=== PATIENT | female | born 1970 ===

== ENCOUNTER 2024-11-23 09:49 | Outpatient (AMB) | payer OTHER, SELFPAY ==
--- NOTE | 2024-11-23 09:57 | A.OFFVIS_ITS ---
Vital Signs 11/23/24 10:00 Height 5 ft 2.6 in Weight 153 lb BMI 27.4 BP 131/70 Blood Pressure Location Rt brachial Position Sitting Respiration 16 Pulse 75 Pulse Source Pulse Oximeter Pulse Oximetry (%) 99 Oxygen Delivery Method Room Air Intake Visit Reasons: LEFT LUMBAR RADICULOPATHY Leak Detection Engineer Required: Yes Leak Detection Engineer Language: [place] Leak Detection Engineer Services: Leak Detection Engineer Offered & Declined Leak Detection Engineer Name: Provider is fluent in [place] Information Interpreted: non-clinical & clinical Allergies No Known Allergies Allergy (Verified 11/23/24 11:03) HPI Comments Details: The patient is a 54-year-old female presenting with left-sided radiculopathy and left hip pain. The pain has been present for approximately two years and is described as a pulling and burning sensation that affects the left buttock and sometimes the mid abdomen and left flank. The pain is exacerbated by tight clothing and seat belts, and she has tried chiropractic and massage therapy without relief. The patient reports that the pain does not worsen with bending or lifting, and she denies any urinary or bowel symptoms. She has a history of thoracolumbar scoliosis, which was identified in imaging studies conducted in October 2022. Updated imaging reports for lumbar spine and left hip are not available for review today. The patient has not undergone any surgeries or procedures related to her current condition. She has been using ibuprofen for pain management, which provides some relief. - Onset: Approximately two years ago - Quality: Pulling sensation left sided low back wrapping around left buttock and left lateral hip, aching, burning, cramping, tight - Location: Left low back, left buttock, left lateral hip, sometimes radiating to the mid upper abdomen - Exacerbating factors: Tight clothing, seatbelts, pulling, prolonged driving or sitting, changing positions, sleeping on left side - Relieving factors: Ibuprofen provides some relief - Interference: Does not worsen with bending or lifting - Affect: Pain impacts daily activities, work, functioning - Analgesia: Currently using ibuprofen, pain level can reach up to 8/10 - Adverse Effects: None reported - Activities of Daily Living: Pain does not interfere with bending or lifting, but tight clothing and seatbelts exacerbate pain - Aberrant Drug Related Behaviors: None reported [facility] Medical History (Updated 11/23/24 @ 12:10 by ÁNGEL Maher) Pyelonephritis of left kidney Vitamin D deficiency Left flank pain Left hip pain Left lumbar radiculopathy Review of Systems Const Details: - Musculoskeletal: Reports left-sided radiculopathy and left hip and buttock teresa n, denies worsening with bending or lifting - Neurological: Denies sensory or motor deficits - Genitourinary: Denies urinary or bowel symptoms - GI: Reports back pain with 6-8/10 will radiate to mid epigastric region, left flank and cause nausea All systems reviewed & are unremarkable except as noted in HPI and below Physical Exam Vital Signs: Last Vital Signs Pulse 75 11/23/24 10:00 Resp 16 11/23/24 10:00 BP 131/70 11/23/24 10:00 Pulse Ox 99 11/23/24 10:00 Oxygen Delivery Method Room Air 11/23/24 10:00 BMI result Body Mass Index 27.4 General: Appears afebrile. Alert and oriented. Mood and affect appropriate. Follows and participates in conversation appropriately. Respiratory effort is unlabored. No cough. Able to transition from sit to stand unassisted. Ambulates with bilaterally normal heel strike and toe off. General: Yes no CVA tenderness Back/Spine/Pelvis Other: Patient is able to walk and stand on heels and tip toes with no difficulties demonstrating good motor tone. Normal gait, no limping. Can flex forward to 70- 75 degrees and extend to 10-15 degrees before experiencing lumbar pain. Demonstrates 5/5 strength of quadriceps bilaterally as well as flexion/dorsiflexion of bilateral feet against resistance. 2+ pedal pulses bilaterally. Seated and supine straight leg rise with dorsiflexion negative bilaterally, mild difficulty noted with right SLR supine but no pain. +2 simpson lar and achilles reflexes bilaterally. Facet loading test positive bilaterally, mild symptoms. Ab sign positive bilaterally, Derrell?s reproduces mild left lateral hip and buttock pain but not back pain, Pelvic compression and Stinchfield tests are negative. Mild TTP to both GTB. Valsalva maneuver negative. Back: no CVA tenderness Cervical Spine: cervical ROM normal, loss of normal cervical lordosis, No Cervical spine scars present and No Cervical spine tenderness Thoracic/Lumbar Spine: thoracic and lumbar spine normal to inspection, No Thoracic/lumbar spine scar(s), Lasegue's sign negative, straight leg raise negative bilaterally, pain with thoraco-lumbar ROM, paraspinal muscle tenderness on the left in the mid lumbar and in the lower lumbar, Thoracic/lumbar scoliosis, thoraco-lumbar spasm on the left in the lower thoracic, in the upper lumbar and in the mid lumbar, No thoracic spinal tenderness and lumbar spinal tenderness at L4 and at L5 Sacroiliac joints: bilaterally tender to palpation Results Reviewed Results Reviewed: CERVICAL, THORACIC AND LUMBAR SPINE 3 VIEWS 10/12/22 at [facility] FINDINGS: Vertebral body heights are normal. There is a mild cervicothoracic levoscoliosis. There is mild disc space narrowing at C6-C7. The remaining disc spaces are well-maintained. No acute fracture or spondylolisthesis is seen. There is minimal anterior spondylosis at C3-C4, C4-C5 and C6-C7. The posterior elements are intact. There is no prevertebral soft tissue swelling. The dens and C7-T1 interface are normal. IMPRESSION: 1. There is a mild cervicothoracic levoscoliosis. 2. There is mild degenerative disc disease at C6-C7. 3. There is multi-level minimal anterior cervical spondylosis. XR THORACIC SPINE 10/12/22 FINDINGS: There is no fracture or bone destruction seen and the vertebral alignment is normal. There is no disc space narrowing. There is no abnormality of the paraspinal soft tissues. IMPRESSION: Unremarkable examination. XR LUMBOSACRAL SPINE 10/12/22 CLINICAL INFORMATION: Mid back pain. FINDINGS: Vertebral body heights are normal. There is a mild thoracic dextroscoliosis. The thoracic disc spaces are relatively well-maintained. No acute fracture or spondylolisthesis is seen. The posterior elements are intact. The paraspinal soft tissues are normal. IMPRESSION: 1. There is a mild thoracic dextroscoliosis. 2. The thoracic disc spaces are relatively well-maintained. XR LUMBOSACRAL SPINE 10/12/22 CLINICAL INFORMATION: Lower back pain. COMPARISON: None FINDINGS: Vertebral body heights are normal. There is a slight lumbar dextroscoliosis. The lumbar disc spaces are well-maintained. No acute fracture or spondylolisthesis is seen. The posterior elements are intact. The paravertebral soft tissues are unremarkable. IMPRESSION: 1. There is a slight lumbar dextroscoliosis. 2. The lumbar disc spaces are well-maintained. Assessment & Plan Assessment & Plan (1) Left lumbar radiculopathy: Code(s): M54.16 - Radiculopathy, lumbar region Category: Medical (2) Left hip pain: Code(s): M25.552 - Pain in left hip Category: Medical (3) Left flank pain: Code(s): R10.A2 - Flank pain, left side Category: Medical (4) Epigastric pain: Code(s): R10.13 - Epigastric pain Category: Medical (5) Sacroiliitis: Code(s): M46.1 - Sacroiliitis, not elsewhere classified Category: Medical Plan The plan includes obtaining an MRI to further evaluate the cause of the left- sided radiculopathy and Abdominal US to follow up on mid epigastric and left flank pain with associated nausea symtpoms. Discussed interventional treatments for radicular symptoms, including therapeutic epidural steroid injection and diagnostic vs therapeutic SIJ injections. The patient is advised to continue using ibuprofen as needed for pain management, and to avoid tight clothing and seatbelts that exacerbate her symptoms. Patient encouraged to follow up with her PCP regarding ongoing left flank and abdominal pain, with potential referrals to GI and Urology providers. All questions and concerns have been answered and patient agreed with the treatment plan. Follow up for MRI results and sooner as needed. Patient was informed and verbally consented to the use of an ambient scribe for clinic note documentation during this visit. Orders: Orders US abdomen complete Today R10.13 - Epigastric pain, R10.A2 - Flank pain, left side MR lumbar spine wo con Today G89.29 - Other chronic pain, M47.817 - Spondylosis without myelopathy or radiculopathy, lumbosacral region, M54.16 - Radiculopathy, lumbar region, R10.A2 - Flank pain, left side Coding Level of Care Code New Pt Level 4 (63189) Diagnoses Left lumbar radiculopathy M54.16 Left hip pain M25.552 Left flank pain R10.A2 Epigastric pain R10.13 Sacroiliitis M46.1
[2024-11-23 10:00] VITALS: BP 131/70; PULSE 75; RESP 16; O2SAT 99; BMI 27.4
--- OUTSIDE RECORDS SUMMARY | 2024-11-23 11:21 | XMS_ITS | Clinical Summary ---
Author Organization [facility] Address [address] [place] [address] Care Team Providers Care Digital Operations Analyst Name Role Phone Milly Palafox PA-C Primary Care Provider + [phone] Source Comments PLEASE NOTE, if this patient is a minor, it may be UNLAWFUL to discuss sensitive information that is contained in these records (such as FAMILY PLANNING, MENTAL HEALTH or SUBSTANCE ABUSE) with the minor patient's parent or other person without the patient's specific authorization.[facility] Allergies No known active allergies Medications Selenium Sulfide 2.25 % shampooIndication s:Seborrheic dermatitis Apply topically once a week. 180 mL 1 11/25/19 16 Active benzonatate (TESSALON) 100 mg capsuleIndication s:Dry throat,Cough, persistent Take 1 Capsule by mouth 3 (three) times daily as needed for cough 90 Capsule 11/18/19 23 Active fluticasone (FLONASE) 50 mcg/actuation nasal sprayIndications: Post-nasal drip Place 2 Sprays in both nostrils nightly at bedtime 16 g 4 11/27/19 23 Active loratadine (CLARITIN) 10 mg tabletIndications :Dry throat,Cough, persistent TAKE 1 TABLET BY MOUTH ONCE DAILY NEEDED FOR ALLERGIES 90 Tablet 02/16/19 24 Active simethicone (GAS-X ULTRA) 180 mg capsuleIndication s:Abdominal bloating Take 2 Capsules by mouth every 6 (six) hours as needed for flatulence 100 Capsule 1 09/13/19 24 Active levothyroxine 88 mcg tabletIndications :Acquired hypothyroidism TAKE 1 TABLET BY MOUTH EVERY DAY 90 Tablet 1 11/22/19 25 Active levothyroxine 88 mcg tabletIndications :Acquired hypothyroidism TAKE 1 TABLET BY MOUTH EVERY DAY 90 Tablet 2 08/21/19 25 2024 Discontinued Active Problems Problem Noted Date Diagnosed Date 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 Acquired hypothyroidism 11/25/2015 Encounters Date Type Department Care Team Description 10/10/2024 10:20 AM EDT Office Visit [address] [address] Milly Palafox PA-C from Last 3 Months Immunizations Immunization Administration Dates Next Due Td (adult),2 Lf tetanus toxo id (TDVAX), preservative free 08/31/2022 Social History Tobacco Use Types Packs/Day Years Used Date Smoking Tobacco: Never Passive Smoke Exposure: Never Smokeless Tobacco: Never Tobacco Cessation:Counseling Given: Yes Alcohol Use Standard Drinks/Week Comments No 0 (1 standard drink = 0.6 oz pur e alcohol) Social Connections Answer Date Recorded How often do you feel lonely or isolated from th ose around you? 1 09/13/2023 Financial Resource Strain Answer Date R ecorded Hard to pay for: Food 1 09/13/2023 Stress Answer Date Recorded Do you feel these kinds of stress these days? 1 09/13/2023 Physical Activity Answer Date Recorded Physical Activity 0 09/30/2018 Food Insecurity Answer Date Recorded Hard to pay for: Food 1 09/13/2023 Transportation Needs Answer Date Record ed Hard to pay for: Transportation 1 09/13/2023 Housing Stability Answer Date Recorded Hard to pay for: Rent/Mortgage payment 1 09/13/2023 Safety and Environment Answer Date Jr rded Safety 0 09/30/2018 Utilities Answer Date Recorded Hard to pay for: Utilities 1 09/12 Employment Answer Date Recorded Employment 0 09/30/2018 Comments No Sex and Gender Information Value Date Recorded Sex Assigned at Female 10/02/2018 10:59 PM PDT Legal Sex Female 11:36 AM PDT Gender Identity Female 10/02/2018 10:59 PM PDT Sexual Orientation Straight 10/02/2018 10 :59 PM PDT Last Filed Vital Signs Vital Sign Reading Time Taken Comments Blood Pressure 126/80 10/10/2024 10:19 AM EDT Pulse 87 10/10/2024 10:19 AM EDT Temperature 36.9 C (98.5 F) 10/10/2024 10:19 AM EDT Respiratory Rate 16 10/10/2024 10:19 AM EDT Oxygen Saturation 99% 10/10/2024 10:19 AM EDT Inhaled Oxygen Concentration - - Weight 68.5 kg (151 lb) 10/10/2024 10:19 AM EDT Height 159 cm (5' 2.6 ) 10/10/2024 10:19 AM EDT Body Mass Index 27.09 10/10/2024 10:19 AM EDT Plan of Treatment Upcoming Encounters Date Type Department Care Team (Late st Contact Info) Description 12/03/2024 9:40 AM EDT Telemedicine Visit [facility] [address] [place] [address] Milly Palafox PA-C [address] [place] [address] Health Maintenance Due Date Last Done Comments Anxiety Screening 1972 HPV Screening (self-collect) 1972 HPV Screening 1972 Imm-Hepatitis B (1 of 3 - 19+ 3-dose series) 08/07/1991 CT Colonography 2017 Colonoscopy 2017 Flexible Sigmoidoscopy 2017 Imm-Pneumococcal 50+ (1 of 1 - PCV) 2022 Imm-Zoster, Recombinant (1 of 2) 2022 Imm-DTaP/Tdap/Td (1 - Tdap) 09/01/2022 08/31/2022 FIT/gFOBT 06/12/2024 06/13/2023 Zcc-MRRMT-81 (1 - season) 2024 Imm-Influenza (#1) 2024 Annual Wellness (Adult): Indicated (All Coverage) 10/10/2025 10/10/2024, 09/13/2023, 08/31/2022, Additional history exists Breast Cancer Screening (Mammogram) 10/10/2025 Postponed from 2012 (Patient postponement) Hypertension Screening (#1) 10/10/2025 TSH Monitoring 10/10/2025 10/10/2024, 08/0 07/2023, 11/29/2022, Additional history exists Tobacco Screening 10/10/2025 10/10/2024 Colorectal Cancer Screening 06/12/2026 Fecal DNA 06/12/2026 06/13/2023 Pap Smear 09/14/2026 09/15/2023, 010 03/2023, 02/08/2023, Additional history exists Diabetes Screening 10/11/2027 10/10/2024, 0 09/13/2023, 08/31/2022, Additional history exists Cervical Cancer Screening 02/09/2028 Pap + HPV 02/09/2028 02/08/2023, 0 03/2023, 02/08/2023, Additional history exists Lipid Screening 10/10/2029 10/10/2024, 0 07/2023, 08/31/2022, Additional history exists HIV Screening Completed 08/31/2022 Hepatitis C Screening Completed 08/31/2022 Alcohol and Drug Screen Completed 10/11/19, 09/13/2023, 08/31/2022 Depression Annual Screen Completed 10/10/2024 Cervical Ablation/Cold-Knife Conization Discontinued Cervical Cryotherapy Discontinued Colposcopy Discontinued Excision/Leep Discontinued HPV Genotyping Discontinued Vaginal Pap Discontinued Vulvoscopy Discontinued Procedures Procedure Name Priority Date/Time Associated Diagnosis Comments OTHER ORDERS SCANNED DOCUMENT 10/14/2024 3:00 AM EDT XR LUMBAR 2-3V Routine 10/12/2024 3:00 AM EDT Left lumbar radiculopathy Left hip pain X-RAY HIP, COMPLETE, MIN 2 VIEWS, LEFT Routine 10/12/2024 3:00 AM EDT Left lumbar radiculopathy Left hip pain RFLX - REFLEXIVE URINE CULTURE Routine 10/10/2024 10:45 AM EDT 25 HYDROXY INCLUDES FRACTIONS IF PERFORMED Routine 10/10/2024 10:45 AM EDT Routine general medical examination at a health care facility Left lumbar radiculopathy Left hip pain Left flank pain Mild vitamin D deficiency BLOOD COUNT COMPLETE AUTO&AUTO DIFRNTL WBC Routine 10/10/2024 10:45 AM EDT Routine general medical examination at a health care facility Left lumbar radiculopathy Left hip pain Left flank pain Mild vitamin D deficiency COMPREHENSIVE METABOLIC PANEL Routine 10/10/2024 10:45 AM EDT Routine general medical examination at a health care facility Left lumbar radiculopathy Left hip pain Left flank pain Mild vitamin D deficiency LIPID PANEL Routine 10/10/2024 10:45 AM EDT Routine general medical examination at a health care facility Left lumbar radiculopathy Left hip pain Left flank pain Mild vitamin D deficiency TSH W/RFLX FREE T4 Routine 10/10/2024 10 :45 AM EDT Routine general medical examination at a health care facility Left lumbar radiculopathy Left hip pain Left flank pain Mild vitamin D deficiency URINALYSIS, COMPLETE W/REFLEX TO CULTURE Routine 10/10/2024 10:45 AM EDT Routine general medical examination at a health care facility Left lumbar radiculopathy Left hip pain Left flank pain Mild vitamin D deficiency PAP SMEAR 09/15/2023 3:00 AM EDT COLOGUARD Routine 06/13/2023 3:00 AM EDT Routine general medical examination at a health care facility PAP W/ HPV 02/08/2023 3:00 AM EST HIV 1/2 AG & AB W/RFLX (4TH GEN) Routine 08/31/2022 2:57 PM EDT Routine general medical examination at a health care facility HEPATITIS C AB W/RFLX HCV RNA, QT, RT PCR Routine 08/31/2022 2:57 PM EDT Routine general medical examination at a health care facility from Last 3 Months or Most Recently Relevant to Health Maintenance Results * OTHER ORDERS SCANNED DOCUMENT (10/14/2024 3:00 AM EDT) 10/14/2024 3:00 AM EDT us Milly Palafox PA-C SCAN OTHER ORDERS Final Resu lt * X-RAY HIP, COMPLETE, MIN 2 VIEWS, LEFT (10/12/2024 3:00 AM EDT) 10/12/2024 3:00 AM EDT Milly Palafox PA-C IMG XRAY Final Result * XR LUMBAR 2-3V (10/12/2024 3:00 AM EDT) 10/12/2024 3:00 AM EDT Milly MORRIS-Abiodun IMG XRAY Final Result * TSH W/RFLX FREE T4 Routine (10/10/2024 10:45 AM EDT) TSH W/REFLEX TO FT4 3.79 mIU/L 10/11/2024 11:21 AM EDT [facility] Blood Blood / Unknown 10/10/2024 1 0:45 AM EDT 10/11/2024 9:34 AM EDT Narrative [facility] - 10/11/2024 11:23 AM EDT FASTING:NO Reference Range . > or = 20 Years 0.40-4.50 . Ranges First trimester 0.26-2.66 Second trimester 0.55-2.73 Third trimester 0.43-2.91 Milly Palafox PA-C LAB - BLOOD DRAW Final Resul t [facility] [address] [place] [address], [facility] [address] [place] [phone] * URINALYSIS, COMPLETE W/REFLEX TO CULTURE Urine Routine (10/10/2024 10:45 AM EDT) COLOR YELLOW YELLOW 10/11/2024 6:34 AM EDT [facility] APPEARANCE CLEAR CLEAR 10/11/2024 6:34 AM EDT [facility] SPECIFIC GRAVITY 1.019 1.001 - 1.035 10/11/2024 6:34 AM EDT [facility] URINE PH 6.0 5.0 - 8.0 10/11/2024 6:34 AM EDT [facility] GLUCOSE NEGATIVE NEGATIVE 10/11/2024 6:34 AM EDT [facility] BILIRUBIN NEGATIVE NEGATIVE 10/11/2024 6:34 AM EDT [facility] KETONES NEGATIVE NEGATIVE 10/11/2024 6:34 AM EDT [facility] OCCULT BLOOD NEGATIVE NEGATIVE 10/11/2024 6:34 AM EDT [facility] URINE PROTEIN NEGATIVE NEGATIVE 10/11/2024 6:34 AM EDT [facility] NITRITE NEGATIVE NEGATIVE 10/11/2024 6:34 AM EDT [facility] LEUKOCYTE ESTERASE NEGATIVE NEGATIVE 10/11/2024 6:34 AM EDT [facility] URINE LEUKOCYTES NONE SEEN 0 - 5 /HPF 10/11/2024 6:34 AM EDT [facility] RBC NONE SEEN 0 - 2 /HPF 10/11/2024 6:34 AM EDT [facility] SQUAMOUS EPITHELIAL CELLS 0-5 < OR = 5 /HPF 10/11/2024 6:34 AM EDT [facility] BACTERIA NONE SEEN NONE SEEN /HPF 10/11/2024 6:34 AM EDT [facility] HYALINE CAST NONE SEEN NONE SEEN /LPF 10/11/2024 6:34 AM EDT [facility] SEE NOTE SEE NOTE 10/11/2024 6:34 AM EDT [facility] Urine Urine specimen / Unknown 10/10/2024 10:45 AM EDT 10/11/2024 5:40 AM EDT Narrative [facility] - 10/11/2024 6:52 AM EDT FASTING:NO This urine was analyzed for the presence of WBC, RBC, bacteria, casts, and other formed elements. Only those elements seen were reported. . . us Milly Palafox PA-C LAB URINE AMBULATORY Final R esult [facility] [address] [address], [facility] [address] [address] * RFLX - REFLEXIVE URINE CULTURE Routine (10/10/2024 10:45 AM EDT) Pathologist [facility] REFLEXIVE URINE CULTURE SEE NOTE 10/11/2024 6:34 AM EDT [facility] 10/10/2024 10:4 5 AM EDT 10/11/2024 5:40 AM EDT Narrative [facility] - 10/11/2024 6:52 AM EDT FASTING:NO NO CULTURE INDICATED us Milly Palafox PA-C LAB - MICROBIOLOGY AMBULATOR Y Final Result [facility] [address] [address], [facility] [address] [address] * BLOOD COUNT COMPLETE AUTO&AUTO DIFRNTL WBC Routine (10/10/2024 10:45 AM EDT) [facility] WHITE BLOOD CELL COUNT 4.3 3.8 - 10.8 Thousand/ uL 10/11/2024 5:28 AM EDT [facility] RED BLOOD CELL COUNT 4.19 3.80 - 5.10 Million/u L 10/11/2024 5:28 AM EDT [facility] HEMOGLOBIN 13.1 11.7 - 15.5 g/dL 10/11/2024 5:28 AM EDT [facility] HEMATOCRIT 40.1 35.0 - 45.0 % 10/11/2024 5:28 AM EDT [facility] MCV 95.7 80.0 - 100.0 fL 10/11/2024 5:28 AM EDT [facility] MCH 31.3 27.0 - 33.0 pg 10/11/2024 5:28 AM EDT [facility] MCHC 32.7 32.0 - 36.0 g/dL 10/11/2024 5:28 AM EDT [facility] RDW 12.2 11.0 - 15.0 % 10/11/2024 5:28 AM EDT [facility] PLATELET COUNT 284 140 - 400 Thousand/ uL 10/11/2024 5:28 AM EDT [facility] MPV 11.2 7.5 - 12.5 fL 10/11/2024 5:28 AM EDT [facility] ABSOLUTE NEUTROPHILS 1,952 1,500 - 7,800 cells/uL 10/11/2024 5:28 AM EDT [facility] ABSOLUTE LYMPHOCYTES 1,759 850 - 3,900 cells/uL 10/11/2024 5:28 AM EDT [facility] ABSOLUTE MONOCYTES 426 200 - 950 cells/uL 10/11/2024 5:28 AM EDT [facility] ABSOLUTE EOSINOPHILS 142 15 - 500 cells/uL 10/11/2024 5:28 AM EDT [facility] ABSOLUTE BASOPHILS 22 0 - 200 cells/uL 10/11/2024 5:28 AM EDT [facility] NEUTROPHILS PCT 45.4 % 5:28 AM EDT [facility] LYMPHOCYTES 40.9 % 10/11/2024 5:28 AM EDT [facility] MONOCYTES 9.9 % 10/11/2024 5:28 AM EDT [facility] EOSINOPHILS 3.3 % 10/11/2024 5:28 AM EDT [facility] BASOPHILS 0.5 % 10/11/2024 5:28 AM EDT [facility] Blood Blood / Unknown 10/10/2024 1 0:45 AM EDT 10/11/2024 5:26 AM EDT Narrative [facility] - 10/11/2024 5:29 AM EDT FASTING:NO For adults, a slight decrease in the calculated MCHC value (in the range of 30 to 32 g/dL) is most likely not clinically significant; however, it should be interpreted with caution in correlation with other red cell parameters and the patient's clinical condition. us Milly Palafox PA-C LAB - BLOOD DRAW Final Resul t [facility] [facility] [address] [address], [facility] [address] [place] [address] * 25 HYDROXY INCLUDES FRACTIONS IF PERFORMED Routine (10/10/2024 10:45 AM EDT) Pathologist [facility] VITAMIN D, 25-OH, TOTAL 30 30 - 100 ng/mL 10/11/2024 11:21 AM EDT [facility] Blood Blood / Unknown 10/10/2024 1 0:45 AM EDT 10/11/2024 9:34 AM EDT Narrative [facility] - 10/11/2024 11:23 AM EDT FASTING:NO Vitamin D Status 25-OH Vitamin D: . Deficiency: <20 ng/mL Insufficiency: 20 - 29 ng/mL Optimal: > or = 30 ng/mL . For 25-OH Vitamin D testing on patients on D2-supplementation and patients for whom quantitation of D2 and D3 fractions is required, the QuestAssureD(TM) 25-OH VIT D, (D2,D3), LC/MS/MS is recommended: order code 63380 (patients >2yrs). . See Note 1 . Note 1 . For additional information, please refer to http://education.Corvalius/faq/SLN040 (This link is being provided for informational/ educational purposes only.) us Milly Palafox PA-C LAB - BLOOD DRAW Final Resul t [facility] [address] [address], [facility] [address] [address] * (ABNORMAL) LIPID PANEL Routine (10/10/2024 10:45 AM EDT) Pathologist [facility] CHOLESTEROL, TOTAL 184 <200 mg/dL 10/11/2024 11:09 AM EDT [facility] HDL CHOLESTEROL 47(L) > OR = 50 mg/dL 10/11/2024 11:09 AM EDT [facility] TRIGLYCERIDES 170(H) <150 mg/dL 10/11/2024 11:09 AM EDT [facility] LDL-CHOLESTEROL 108(H) mg/dL (calc) 10/11/2024 11:09 AM EDT [facility] CHOL/HDLC RATIO 3.9 <5.0 (calc) 10/11/2024 11:09 AM EDT [facility] NON-HDL CHOLESTEROL 137(H) <130 mg/dL (calc) 10/11/2024 11:09 AM EDT [facility] Blood Blood / Unknown 10/10/2024 1 0:45 AM EDT 10/11/2024 9:34 AM EDT Narrative [facility] - 10/11/2024 11:10 AM EDT FASTING:NO Reference range: <100 . Desirable range <100 mg/dL for primary prevention; <70 mg/dL for patients with CHD or diabetic patients with > or = 2 CHD risk factors. . LDL-C is now calculated using the Meagan calculation, which is a validated novel method providing better accuracy than the Friedewald equation in the estimation of LDL-C. Mauricio SS et al. PEÑA. 2013;310(19): 9624-6091 (http://education.Corvalius/faq/DVZ131) For patients with diabetes plus 1 major ASCVD risk factor, treating to a non-HDL-C goal of <100 mg/dL (LDL-C of <70 mg/dL) is considered a therapeutic option. us Milly MORRIS-C LAB - BLOOD DRAW Final Resul t [facility] [address] [place] [address], [facility] [address] [place] [phone] * (ABNORMAL) COMPREHENSIVE METABOLIC PANEL Routine (10/10/2024 10:45 AM EDT) GLUCOSE 91 65 - 139 mg/dL 10/11/2024 11:09 AM EDT [facility] UREA NITROGEN (BUN) 16 7 - 25 mg/dL 10/11/2024 11:09 AM EDT [facility] CREATININE (blood) 0.88 0.50 - 1.03 mg/dL 10/11/2024 11:09 AM EDT [facility] EGFR 79 > OR = 60 mL/min/1. 73m2 10/11/2024 11:09 AM EDT [facility] BUN/CREATININE RATIO SEE NOTE: 6 - 22 (calc) 10/11/2024 11:09 AM EDT [facility] SODIUM 139 135 - 146 mmol/L 10/11/2024 11:09 AM [facility] POTASSIUM 4.6 3.5 - 5.3 mmol/L 10/11/2024 11:09 AM [facility] CHLORIDE 101 98 - 110 mmol/L 10/11/2024 11:09 AM [facility] CARBON DIOXIDE 31 20 - 32 mmol/L 10/11/2024 11:09 AM [facility] CALCIUM 9.5 8.6 - 10.4 mg/dL 10/11/2024 11:09 AM [facility] PROTEIN, TOTAL 7.3 6.1 - 8.1 g/dL 10/11/2024 11:09 AM [facility] ALBUMIN 4.3 3.6 - 5.1 g/dL 10/11/2024 11:09 AM [facility] GLOBULIN 3.0 1.9 - 3.7 g/dL (calc) 10/11/2024 11:09 AM [facility] ALBUMIN/GLOBULI N RATIO 1.4 1.0 - 2.5 (calc) 10/11/2024 11:09 AM [facility] BILIRUBIN, TOTAL 0.4 0.2 - 1.2 mg/dL 10/11/2024 11:09 AM [facility] ALKALINE PHOSPHATASE 103 37 - 153 U/L 10/11/2024 11:09 AM [facility] AST 24 10 - 35 U/L 10/11/2024 11:09 AM [facility] ALT 34(H) 6 - 29 U/L 10/11/2024 11:09 AM [facility] Blood Blood / Unknown 10/10/2024 1 0:45 AM EDT 10/11/2024 9:34 AM EDT Narrative [facility] - 10/11/2024 11:10 AM EDT FASTING:NO . Non-fasting reference interval . Not Reported: BUN and Creatinine are within reference range. . us Milly Palafox PA-C LAB - BLOOD DRAW Final Resul t [facility] [address] [address], [facility] [address] [place] [address] * PAP SMEAR (09/15/2023 3:00 AM EDT) 09/15/2023 3:00 AM EDT Milly Palafox PA-C LAB - PATHOLOGY AND CYTOLOGY AMBULATORY Final Result * COLOGUARD (06/13/2023 3:00 AM EDT) Stool Stool specimen / Unknown 06/13/2023 3:00 AM EDT Delfina Baker NP LAB BODY FLUIDS AND STOOLS AMBUL ATORY Edited Result - Final [employer] [address], [address] [facility] [id number] [place] [address], * PAP W/ HPV (02/08/2023 3:00 AM EST) 02/08/2023 3:00 AM EST Milly Palafox PA-C LAB - PATHOLOGY AND CYTOLOGY AMBULATORY Edited Result - Final * Hep C w/ Reflex (08/31/2022 2:57 PM EDT) HEPATITIS C ANTIBODY NON-REACT FLORENCE NON-REACT FLORENCE [facility] Comment: HCV antibody was non-reactive. There is no laboratory evidence of HCV infection. In most cases, no further action is required. However, if recent HCV exposure is suspected, a test for HCV RNA (test code 11515) is suggested. For additional information please refer to http://education.ActualSun/faq/DKO29q6 (This link is being provided for informational/ educational purposes only.) Blood Blood / Unknown 08/31/2022 2 :57 PM EDT 08/31/2022 2:57 PM EDT Narrative [facility] - 09/01/2022 8:36 AM EDT FASTING:NO Delfina Baker NP LAB - BLOOD DRAW Final Result Performing Organization Address [facility] Co de Phone Number [facility] [employer] [facility] [address] [address], [facility] [address] [address] * HIV 1/2 AG & AB W/RFLX (4TH GEN) (08/31/2022 2:57 PM EDT) Pathologist [facility] HIV AG/AB, 4TH GEN NON-REAC TIVE NON-REAC TIVE [facility] Comment: HIV-1 antigen and HIV-1/HIV-2 antibodies were not detected. There is no laboratory evidence of HIV infection. PLEASE NOTE: This information has been disclosed to you from records whose confidentiality may be protected by state law. If your state requires such protection, then the state law prohibits you from making any further disclosure of the information without the specific written consent of the person to whom it pertains, or as otherwise permitted by law. A general authorization for the release of medical or other information is NOT sufficient for this purpose. For additional information please refer to http://education.CargoGuard.LightningBuy/faq/BSI062 (This link is being provided for informational/ educational purposes only.) The performance of this assay has not been clinically validated in patients less than 2 years old. Blood Blood / Unknown 08/31/2022 2:57 PM EDT 08/31/2022 2:57 PM EDT Narrative [facility] - 09/01/2022 8:36 AM EDT FASTING:NO us Delfina Baker NP LAB - BLOOD DRAW Final Result Performing Organization Address City/[facility]/ZIP Co de Phone Number [facility] [address] [address], [facility] [address] [address] from Last 3 Months or Most Recently Relevant to Health Maintenance Insurance [facility] Member Subscriber Plan / Payer (Ef fective 2022-Present) Name:Ivory Beltre Relation to Subscriber:Self Name:Ivory Beltre Payer ID:[id number] Group ID:Not on file Type:Lucy Address: [facility] [address] [place] [address] Care Teams Digital Operations Analyst Relationship Specialty Start Date End Date Milly Palafox PA-C [address] [place] [address] PCP - General Internal Medicine 11/25/15
--- OUTSIDE RECORDS SUMMARY | 2024-11-23 11:21 | XMS_ITS | Clinical Summary ---
Author Organization [address] [facility] Address [address] [place] [address] Phone Care Team Providers Care Geriatric Nurse Name Role Phone Torrey Dye MD Primary Care Provider Encounters Date Type Department Care Team Description 10/29/2024 Lab Requisition [facility] - Main Lab [address] [facility] [place] [address] Augustus Beckham MD Encounter for gynecological examination (general) (routine) without abnormal findings from Last 3 Months Social History Tobacco Use Types Packs/Day Years Used Date Smoking Tobacco: Never Assessed Comments Unknown Sex and Gender Information Value Date Recorded Sex Assigned at Not on file Legal Sex Female 2:11 AM EST Gender Identity Not on file Sexual Orientation Not on file Plan of Treatment Health Maintenance Due Date Last Done Comments Breast Cancer Screening 1972 Colorectal Cancer Screening: Colonoscopy 1972 DTaP,Tdap,and Td Vaccines (1 - Tdap) 08/07/1991 Hepatitis B Vaccines (1 of 3 - 19+ 3-dose series) 08/07/1991 Cervical Cancer Screening: P ap Smear 1993 10/26/2024 Pneumococcal Vaccine: 50+ Ye ars (1 of 1 - PCV) 2022 Zoster Vaccines (1 of 2) 2022 HIV Screening 03/08/2023 Hepatitis C Screening 03/08/2023 Social Influencers of Health Screening 03/08/2023 Depression Screening 02/08/2024 COVID-19 Vaccine (1 - 2023-2 5 season) 2024 Influenza Vaccine (#1) 2024 RSV Immunization Adult Patie nts (1 - 1-dose 75+ series) 08/07/2047 HIB Vaccines Aged Out No longer eligi ble based on patient's age to complete this topic HPV Vaccines Aged Out No longer eligi ble based on patient's age to complete this topic Hepatitis A Vaccines Aged Out No long er eligible based on patient's age to complete this topic IPV Vaccines Aged Out No longer eligi ble based on patient's age to complete this topic MMR Vaccines Aged Out No longer eligi ble based on patient's age to complete this topic Meningococcal ACWY Vaccine Aged Out N o longer eligible based on patient's age to complete this topic Meningococcal B Vaccine Aged Out No l onger eligible based on patient's age to complete this topic RSV Immunization Patients Un luisa 20 months Aged Out No longer eligible b ased on patient's age to complete this topic Varicella Vaccines Aged Out No longer eligible based on patient's age to complete this topic Procedures Procedure Name Priority Date/Time Associated Diagnosis Comments PAP SMEAR Routine 10/26/2024 12:00 AM EDT Encounter for gynecological examination (general) (routine) without abnormal findings from Last 3 Months Results * Pap smear (10/26/2024 12:00 AM EDT) Interpretation Negative for intraepithelial lesion or malignancy 11/23/2024 7:[address] [facility] at 0709 EDT General Categorization Negative 11/23/2024 7:[address] [facility] Additional Information ASCUS 3 11/23/2024 7:[address] [facility] Specimen Adequacy Satisfactory for evaluation, endocervical/alanis sformation zone component present 11/23/2024 7:[address] [facility] Pap Methodology Liquid Based Pap Test 11/23/2024 7:[address] [facility] Disclaimer The Pap test is a screening test which carries an inherent false negative rate. These test results should be correlated with the patient's clinical findings and history. This Pap test was processed using an automated screening system. Technical cytopathology services provided by [facility], at [address] [place] [address] (CLIA # [id number]/Juan Carlos cMdonald MD, Mold Shifter.) 11/23/2024 7:09 AM EDT [facility] Console Pap Interpretation Reported 11/23/2024 7:09 AM EDT [facility] Brushing/Spatula Cervix uteri structure / Unknown 10/26/2024 10/29/2024 6:27 AM EDT us Augustus Beckham MD LAB CYTOLOGY ORDERABLES Final Result [facility] [address] [place] [address], [place] [phone] from Last 3 Months Insurance [employer] Care Teams Geriatric Nurse Relationship Specialty Start Date End Date Torrey Dye MD [address] [place] [phone] PCP - General Internal Medicine 11/11/11
--- OUTSIDE RECORDS SUMMARY | 2024-11-23 11:21 | XMS_ITS | Encounter Summary ---
Author Organization [facility] Address [id number] [place] [phone] Care Team Providers Care Retail Wireless Sales Representative Name Role Phone Torrey Dye MD Primary Care Provider Encounter Details Date Type Department Care Team (Latest Contact Info) Description 10/29/2024 Lab Requisition [facility] - Main Lab [address] [facility] [place] [address] Augustus Beckham MD [address] [address] Encounter for gynecological examination (general) (routine) without abnormal findings Social History Tobacco Use Types Packs/Day Years Used Date Smoking Tobacco: Never Assessed Comments Unknown Sex and Gender Information Value Date Recorded Sex Assigned at Not on file Legal Sex Female 2:11 AM EST Gender Identity Not on file Sexual Orientation Not on file documented as of this encounter Plan of Treatment Not on file documented as of this encounter Procedures Procedure Name Priority Date/Time Associated Diagnosis Comments PAP SMEAR Routine 10/26/2024 12:00 AM EDT Encounter for gynecological examination (general) (routine) without abnormal findings documented in this encounter Results * Pap smear (10/26/2024 12:00 AM EDT) Interpretation Negative for intraepithelial lesion or malignancy 11/23/2024 7:09 AM EDT [facility] at 0709 EDT General Categorization Negative 11/23/2024 7:09 AM EDT [facility] Additional Information ASCUS 202211/23/2024 7:09 AM EDT [facility] Specimen Adequacy Satisfactory for evaluation, endocervical/alanis sformation zone component present 11/23/2024 7:09 AM EDT [facility] Pap Methodology Liquid Based Pap Test 11/23/2024 7:09 AM EDT [facility] Disclaimer The Pap test is a screening test which carries an inherent false negative rate. These test results should be correlated with the patient's clinical findings and history. This Pap test was processed using an automated screening system. Technical cytopathology services provided by [facility], at [address] [place] [id number] (CLIA # [id number]/Juan Carlos Mcdonald MD, Mosaic Technician.) 11/23/2024 7:09 AM EDT [facility] Console Pap Interpretation Reported 11/23/2024 7:09 AM T [facility] Brushing/Spatula Cervix uteri structure / Unknown 10/26/2024 10/29/2024 6:27 AM EDT us Augustus Beckham MD LAB CYTOLOGY ORDERABLES Final Result [facility] [address] [place] [address], documented in this encounter Visit Diagnoses Diagnosis Encounter for gynecological examination (general) (routine) without abnormal findings documented in this encounter Care Teams Retail Wireless Sales Representative Relationship Specialty Start Date End Date Torrey Dye MD [address] [place] [phone] PCP - General Internal Medicine 11/11/11 documented as of this encounter
== END 2024-11-23 10:37 | disposition home or self-care (01) ==
PROVIDERS: PCP Physician Assistant; Visit Provider Nurse Practitioner Family
DX: M54.16 Radiculopathy, lumbar region (principal); M25.552 Pain in left hip; R10.A2 Flank pain, left side; R10.13 Epigastric pain; M46.1 Sacroiliitis, not elsewhere classified
CPT/HCPCS: 99204